=== PATIENT | male | born 1980 | race African-American/Black ===

== ENCOUNTER 2016-04-09 13:57 | Emergency (ER) | payer SELFPAY ==
[~2016-04-09] VITALS: Ht 177.8 cm; Wt 92.0 kg
[2016-04-09 13:59] VITALS: BP 130/86; PULSE 102; RESP 20; TEMP 98.2; O2SAT 98
[2016-04-09 21:25] VITALS: BP 126/78; PULSE 92; RESP 18; O2SAT 99
[2016-04-09 22:00] LABS: AUTOMATED NEUTROPHIL # 3.3 TH/MM3 (1.8-7.7); BASOPHIL % 0.4 % (0.0-2.0); EOSINOPHIL # 0.1 TH/MM3 (0-0.4); EOSINOPHIL % 0.9 % (0.0-4.0); HEMATOCRIT 40.2 % (39.0-51.0); HEMO FLAGS DIFF FINAL; LYMPH % 35.4 % (9.0-44.0); LYMPHOCYTE # 2.1 TH/MM3 (1.0-4.8); MEAN CELL VOLUME 88.8 FL (80.0-100.0); MEAN CORPUSCULAR HEMOGLOBIN 28.6 PG (27.0-34.0); MEAN CORPUSCULAR HGB CONC 32.2 % (32.0-36.0); MONO % 8.6 % (0.0-8.0); NEUT % 54.7 % (16.0-70.0); PLATELET COUNT 154 TH/MM3 (150-450); RED BLOOD COUNT 4.53 MIL/MM3 (4.50-5.90); RED CELL DISTRIBUTION WIDTH 13.8 % (11.6-17.2)
[2016-04-09 22:02] LABS: BLOOD, URINE NEG (NEG); COMMENT (UR) CULT NOT INDICATED; CULTURE IF INDICATED CULT NOT INDICATED; GLUCOSE,URINE NEG (NEG); KETONE, URINE NEG (NEG); MUCUS URINE FEW /lpf (OCC); NITRITE,URINE NEG (NEG); URINE COLOR YELLOW (YELLW/STRAW)
[2016-04-09 22:19] LABS: ANION GAP 7 MEQ/L (5-15); AST (GOT) 20 U/L (15-37); BLOOD UREA NITROGEN 14 MG/DL (7-18); CHLORIDE 103 MEQ/L (98-107); GLOMERULAR FILTRATION RATE 86 ML/MIN (>89); SODIUM (NA) 139 MEQ/L (136-145)
[2016-04-09 22:22] LABS: ALKALINE PHOSPHATASE 62 U/L (45-117); ALT (GPT) 25 U/L (12-78); TOTAL BILIRUBIN ADULT 0.3 MG/DL (0.2-1.0)
[2016-04-09 22:52] VITALS: O2SAT 100
--- NOTE | 2016-04-09 22:57 | PD ---
HPI . Abdominal pain Chief Complaint: Abdominal Pain Time Seen by Provider: 22:46 Travel History International Travel<30 days: No Contact w/Intl Traveler<30days: No Traveled to known affect area: No History of Present Illness HPI Patient presents complaining of lower abdominal pain for the last 3 days. It is localized to the right lower quadrant. It is associated with emesis 2. It is associated loss of appetite. He denies any urinary symptoms. He denies any known sick contacts. PFSH Past Medical History Medical History: Denies Significant Hx Tetanus Vaccination: Unknown Influenza Vaccination: No Past Surgical History Surgical History: No Previous Surgery Social History Alcohol Use: Yes (rare) Tobacco Use: No Substance Use: No Allergies-Medications (Allergen,Severity, Reaction): Coded Allergies: No Known Allergies (Unverified , 04/09/16) Reported Meds & Prescriptions Reported Meds & Active Scripts Active No Active Prescriptions or Reported Medications Review of Systems Except as stated in HPI: all other systems reviewed are Neg General / Constitutional: Positive: Fever Gastrointestinal: Positive: Nausea, Vomiting, Abdominal Pain, No: Diarrhea Genitourinary: No: Urgency, Frequency, Dysuria Physical Exam Narrative GENERAL: Patient does not appear to be in any acute distress. SKIN: Warm and dry. HEAD: Atraumatic. Normocephalic. EYES: Pupils equal and round. ENT: No nasal bleeding or discharge. Mucous membranes pink and moist. NECK: Trachea midline. CARDIOVASCULAR: Regular rate and rhythm. Heart sounds are normal. RESPIRATORY: No accessory muscle use. Lungs are clear. GASTROINTESTINAL: Abdomen soft. Right lower quadrant tenderness with no guarding or rebound. Nondistended. MUSCULOSKELETAL: No obvious deformities. No edema. NEUROLOGICAL: Awake and alert. No obvious cranial nerve deficits. Motor grossly within normal limits. Normal speech. PSYCHIATRIC: Appropriate mood and affect; insight and judgment normal. Data Data Last Documented VS Vital Signs Date Time Temp Pulse Resp B/P Pulse Ox O2 Delivery O2 Flow Rate FiO2 04/09/16 22:52 100 Room Air 04/09/16 21:25 92 18 126/78 04/09/16 13:59 98.2 Orders Complete Blood Count With Diff (04/09/16 21:28) Comprehensive Metabolic Panel (04/09/16 21:28) Urinalysis - C+S If Indicated (04/09/16 21:28) Iv Access Insert/Monitor (04/09/16 21:28) Oxygen Administration (04/09/16 21:28) Oximetry (04/09/16 21:28) Lipase (04/09/16 21:28) Ct Abd/Pel W Iv Contrast(Rout) (04/09/16 22:53) Iohexol 350 Inj (Omnipaque 350 Inj) (04/09/16 23:28) Labs Laboratory Tests Test 04/09/16 04/09/16 21:34 21:43 White Blood Count 6.0 TH/MM3 Red Blood Count 4.53 MIL/MM3 Hemoglobin 13.0 GM/DL Hematocrit 40.2 % Mean Corpuscular Volume 88.8 FL Mean Corpuscular Hemoglobin 28.6 PG Mean Corpuscular Hemoglobin 32.2 % Concent Red Cell Distribution Width 13.8 % Platelet Count 154 TH/MM3 Mean Platelet Volume 10.5 FL Neutrophils (%) (Auto) 54.7 % Lymphocytes (%) (Auto) 35.4 % Monocytes (%) (Auto) 8.6 % Eosinophils (%) (Auto) 0.9 % Basophils (%) (Auto) 0.4 % Neutrophils # (Auto) 3.3 TH/MM3 Lymphocytes # (Auto) 2.1 TH/MM3 Monocytes # (Auto) 0.5 TH/MM3 Eosinophils # (Auto) 0.1 TH/MM3 Basophils # (Auto) 0.0 TH/MM3 CBC Comment DIFF FINAL Differential Comment Sodium Level 139 MEQ/L Potassium Level 4.0 MEQ/L Chloride Level 103 MEQ/L Carbon Dioxide Level 29.0 MEQ/L Anion Gap 7 MEQ/L Blood Urea Nitrogen 14 MG/DL Creatinine 0.98 MG/DL Estimat Glomerular Filtration 86 ML/MIN Rate Random Glucose 88 MG/DL Calcium Level 9.1 MG/DL Total Bilirubin 0.3 MG/DL Aspartate Amino Transf 20 U/L (AST/SGOT) Alanine Aminotransferase 25 U/L (ALT/SGPT) Alkaline Phosphatase 62 U/L Total Protein 8.1 GM/DL Albumin 4.5 GM/DL Lipase 100 U/L Urine Color YELLOW Urine Turbidity CLEAR Urine pH 7.0 Urine Specific [place] 1.027 Urine Protein TRACE mg/dL Urine Glucose (UA) NEG mg/dL Urine Ketones NEG mg/dL Urine Occult Blood NEG Urine Nitrite NEG Urine Bilirubin NEG Urine Urobilinogen 2.0 MG/DL Urine Leukocyte Esterase NEG Urine WBC 1 /hpf Urine Mucus FEW /lpf Microscopic Urinalysis Comment CULT NOT INDICATED MDM Medical Decision Making Medical Screen Exam Complete: Yes Emergency Medical Condition: Yes Differential Diagnosis Differential diagnosis of abdominal pain includes but is not limited to gastritis, pancreatitis, hepatitis, gastroenteritis, gallbladder disease, constipation, urinary retention, UTI, peptic ulcer disease, diverticulitis or appendicitis Narrative Course Patient presents complaining with right lower quadrant abdominal pain. He has a normal white count. He has no fever. CBC & BMP Diagram 04/09/16 21:34 Last Impressions Abdomen/Pelvis CT 04/09/16 7010 Signed Impressions: Service Date/Time: , April 09, 2016 23:22 - CONCLUSION: 1. No evidence of acute abdominal or pelvic process. No masses are identified. 2. Constipation Matthew Engel MD UA is negative. Diagnosis Primary Impression: Abdominal pain Qualified Code: R10.31 - Right lower quadrant abdominal pain Additional Impression: Constipation Qualified Code: K59.00 - Constipation, unspecified constipation type Patient Instructions: Constipation (ED), General Instructions Additional Instructions: Take milk of magnesia nightly until abdominal pain resolves. Scripts No Active Prescriptions or Reported Meds Disposition: DISCHARGE HOME Condition: Stable Hortencia Lang MD Apr 09, 2016 22:57
[2016-04-09] MEDS ORDERED: IOHEXOL 350 MG/ML 10 ML VIAL (for RAD DIAG) IV ONE (23:28)
--- NOTE | 2016-04-09 23:39 | RADRPT ---
EXAM DATE/TIME: 04/09/2016 23:22 [facility] COMPARISON: No previous studies available for comparison. INDICATIONS : Right lower quadrant pain, normal white count and no fever. IV CONTRAST: 95 cc Omnipaque 350 (iohexol) IV ORAL CONTRAST: No oral contrast ingested. RADIATION DOSE: 10.23 CTDIvol (mGy) MEDICAL HISTORY : None SURGICAL HISTORY : None. ENCOUNTER: Initial ACUITY: 2 days PAIN SCALE: 7/10 LOCATION: Right lower quadrant TECHNIQUE: Volumetric scanning of the abdomen and pelvis was performed. Using automated exposure control and ad justment of the mA and/or kV according to patient size, radiation dose was kept as low as reasonably achievable to obtain optimal diagnostic quality images. FINDINGS: Examination of the lung bases demonstrates no abnormality. No pleural fluid is identified. No pulmona ry nodules are present. The liver and spleen are free of focal defects. The gallbladder and pancreas demonstrate no abnormality. The adrenal glands are normal. The kidneys demonstrate no evidence of tate id renal mass or hydronephrosis. No free fluid or abdominal masses are identified. No para-aortic rodney nopathy is seen. The liver and spleen are normal in size and no focal defects are identified. The gal lbladder and pancreas are unremarkable. No intrahepatic or extrahepatic ductal dilatation is seen. Th e adrenal glands and kidneys appear normal bilaterally. No hydronephrosis or mass lesions are identif ied. Examination of the pelvis demonstrates no evidence of free fluid or pelvic mass. No abnormally enlarg ed inguinal or retroperitoneal lymph nodes are present. The bladder is unremarkable. There is a moder ate amount of fecal material throughout the colon. CONCLUSION: 1. No evidence of acute abdominal or pelvic process. No masses are identified. 2. Constipation Matthew Engel MD on April 09, 2016 at 23:35 Board Certified Radiologist. This report was verified electronically.
[2016-04-10 00:26] VITALS: BP 118/73; PULSE 76; RESP 18; TEMP 98.1; O2SAT 98
== END 2016-04-10 00:53 | disposition home or self-care (01) ==
LOC: NEPE 13:57
DX: R10.31 Right lower quadrant pain (principal); K59.00 Constipation, unspecified
CPT/HCPCS: 74177; 80053; 81001; 83690; 85025; 99284; Q9967